=== PATIENT | female | born 1955 | race Caucasian/White ===

== ENCOUNTER 2017-01-20 08:14 | Emergency (ER) | payer BC ==
[2017-01-20 08:22] VITALS: BP 156/92
--- NOTE | 2017-01-20 09:16 | RAD ---
Indication: Pain and limitation of movement. Locking. Comparison: No relevant prior exams available on the [facility] PACS for comparison. Technique: Internal and external rotation AP and scapular Y views RIGHT shoulder Report: Normal acromioclavicular and glenohumeral joint alignment. Mild acromioclavicular and glenohumeral joint osteophytosis. Negative for significant glenohumeral joint space narrowing. Sclerosis and cystic change at the greater tuberosity of the humerus favors presence of chronic rotator cuff pathology. Negative for fracture. Negative for stigmata of calcific tendinopathy. Unremarkable soft tissue contours. IMPRESSION: Mild acromioclavicular and glenohumeral joint osteoarthritis. Stigmata of probable chronic rotator cuff pathology.
--- NOTE | 2017-01-20 09:42 | UC ---
Hector Mg Angela, [facility] MD on 01/20/17 at 0855 . Upper Extremity HPI - HPI Summary HPI Summary: This pt is a 61 y/o right-hand dominant female presenting to [facility] c/o right shoulder pain since yesterday in the morning. Pt reports she woke up with this pain in a locked position where she couldn't move it secondary to pain. She notes that she has pain with movement of her right arm. 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 2 days ago (before the pain started), the pt did the same amount of work as usual. When she went to bed before her pain, she didnt have any symptoms. Her shoulder is still painful today only when she lifts her right arm but her pain is alleviated with rest. She notes numbness in the right arm. Pt denies chest pain, cough, abd pain, other joint pain, fever. She states having diarrhea today and yesterday. Pt notes a lot of stress recently. She states she has an upcoming appointment with her PCP for a physical exam in February. PMHx: diverticulitis. Pt is a former smoker, quit 1 year ago and currently uses eCigarettes. MDs Note: 61 y/o female with right shoulder pain. Vitals signs are stable. Elevated blood pressure of 156/92. Pt has 7/10 pain. Visit history noncontributory to present complaint. This pt is not on any anti-hypertensive medications. Nurses Note: right shoulder locked yesterday am forced it to move and arrives today with increased pain - History of Current Complaint Chief Complaint: UCUpperExtremity Stated Complaint: ARM/SHOULDER INJURY Time Seen by Provider: 01/20/17 08:31 Hx Obtained From: Patient Onset/Duration: Sudden Onset - since yesterday Pain Intensity: 7 Pain Scale Used: 0-10 Numeric Location Of Pain: Is Discrete @ - right shoulder Aggravating Factor(s): Movement Alleviating Factor(s): Rest Associated Signs And Symptoms: Positive: Weakness Related History: Dominant Hand Right - Allergies/Home Medications Allergies/Adverse Reactions: Allergies Allergy/AdvReac Type Severity Reaction Status Date / Time Penicillins Allergy Severe severe Verified 01/20/17 08:23 Erythromycin Allergy Intermediate Rash Verified 01/20/17 08:23 Tetracycline Allergy Intermediate Rash Verified 01/20/17 08:23 PMH/Surg Hx/FS Hx/Imm Hx Other Cardiovascular History: DENIES: HTN GI/ History: Diverticulitis - Surgical History Surgical History: Yes Surgery Procedure, Year, and Place: Hysterectomy. Gall Bladder - Family History Known Family History: Positive: Hypertension, Diabetes - Father and mother, Other - Father had an ME in his 20's. Father: dementia. - Social History Alcohol Use: None Substance Use Type: None Smoking Status (MU): Former Smoker Type: eCigarettes Review of Systems Constitutional: Negative Skin: Negative Eyes: Negative ENT: Negative Respiratory: Negative Cardiovascular: Negative Gastrointestinal: Diarrhea Genitourinary: Negative Motor: Decreased ROM - in right shoulder Musculoskeletal: Decreased ROM - in right shoulder, Other: - right shoulder pain Neurological: Numbness - in right arm Psychological: Negative All Other Systems Reviewed And Are Negative: Yes Physical Exam Triage Information Reviewed: Yes Vital Signs: Initial Vital Signs Temp 97.5 F 01/20/17 08:18 Pulse 79 01/20/17 08:18 Resp 17 01/20/17 08:18 BP 156/92 01/20/17 08:18 Pulse Ox 100 01/20/17 08:18 Vital Signs Reviewed: Yes - Additional Comments The patient is well-nourished in no acute distress and in no acute pain. The skin is warm and dry and skin color reflects adequate perfusion. HEENT: The head is normocephalic and atraumatic. The pupils are equal and reactive. The conjunctivae are clear and without drainage. Nares are patent and without drainage. Mouth reveals moist mucous membranes and the throat is without erythema and exudate. The external ears are intact. The ear canals are patent and without drainage. The tympanic membranes are intact. Neck is supple with full range of motion and non-tender. There are no carotid bruits. There is no neck vein distension. Respiratory: Chest is non-tender. Lungs are clear to auscultation and breath sounds are symmetrical and equal. Cardiovascular: Hear is regular rate and rhythm. There is no murmur or rub auscultated. There is no peripheral edema and pulses are symmetrical and equal. Abdomen: The abdomen is soft and non-tender. There are normal bowel sounds heard in all four quadrants and there is no organomegaly palpated. Musculoskeletal: There is no back pain noted. There is good capillary refill. There is no peripheral edema or calf tenderness elicited. LEFT UPPER EXTREMITY: FULL RANGE OF MOTION. RIGHT SHOULDER EXAM: EXTERNAL EXAM IS NORMAL, THERE IS NO SIGN OF INFECTION. LIMITED RANGE OF MOTION LATERALLY AND ANTERIORLY TO LESS THAN 90 DEGREES BECAUSE OF PAIN. PRIMARY DISCOMFORT IS WHEN THE RIGHT SHOULDER IS ABDUCTED. RIGHT ARM CAN BE TWISTED BEHIND THE BACK WITHOUT PAIN. THERE IS SOME COMPLAINT OF SLIGHT NUMBNESS ON BOTH SIDES OF THE BICEP MUSCLE WITH PALPATION. DISTAL CIRCULATION, MOTOR AND SENSORY ARE FULLY INTACT. Neurological: Patient is alert and oriented to person, place and time. The patient has symmetrical motor strength in all four extremities. Cranial nerves are grossly intact. Deep tendon reflexes are symmetrical and equal in all four extremities. Psychiatric: The patient has an appropriate affect and does not exhibit any anxiety or depression. Diagnostics - Radiology Right Shoulder XR Xray Interpretation: Positive (See Comments) - IMPRESSION: Mild acromioclavicular and glenohumeral joint osteoarthritis. Stigmata of probable chronic rotator cuff pathology. ED physician has reviewed this radiology report and agrees. Radiology Interpretation Completed By: Radiologist Upper Extremity Course/Dx - Course Course Of Treatment: Medications have been included in the original chart and reviewed. Patient is Urgent/Emergent. BP elevated due to current condition w/o HTN in PMH. On exam, LEFT UPPER EXTREMITY: FULL RANGE OF MOTION. RIGHT SHOULDER EXAM: EXTERNAL EXAM IS NORMAL, THERE IS NO SIGN OF INFECTION. LIMITED RANGE OF MOTION LATERALLY AND ANTERIORLY TO LESS THAN 90 DEGREES BECAUSE OF PAIN. PRIMARY DISCOMFORT IS WHEN THE RIGHT SHOULDER IS ABDUCTED. RIGHT ARM CAN BE TWISTED BEHIND THE BACK WITHOUT PAIN. THERE IS SOME COMPLAINT OF SLIGHT NUMBNESS ON BOTH SIDES OF THE BICEP MUSCLE WITH PALPATION. DISTAL CIRCULATION, MOTOR AND SENSORY ARE FULLY INTACT. - Differential Dx/Diagnosis Differential Diagnosis/HQI/PQRI: Arthritis, Fracture (Closed), Other - Tendinitis Provider Diagnoses: Right shoulder: osteoarthritis, rotator cuff injury Discharge - Discharge Plan Condition: Stable Disposition: HOME Patient Education Materials: Rotator Cuff Tendinitis (ED), Osteoarthritis (ED) , Adhesive Capsulitis (ED) Forms: *Work Release Referrals: Baltazar Ortiz MD [Primary Care Provider] - Additional Instructions: Thank you for helping us improve patient care by filling out the [employer] Survey. WE DISCUSSED: There are no broken bones but your x ray shows arthritis and injury to the muscles around your shoulder. Warm shower and heat to area in the morning. See information to perform shoulder exercises including pendulum exercises to keep shoulder loose. After work, use ice to area of pain. See you doctor next month, as planned, and consider physical therapy at that time if condition continues. This will take approximately 10 days to get better. Call us for any increased pain or disability. x ray report for your doctor: Mild acromioclavicular and glenohumeral joint osteoarthritis. Stigmata of probable chronic rotator cuff pathology. Rest arm for next 5 days. Return to work on Wednesday, January 25, 2017. The documentation as recorded by the Hector ford Angela accurately reflects the service I personally performed and the decisions made by me, Michael Kasper MD.
== END 2017-01-20 09:50 | disposition home or self-care (01) ==
LOC: UCEAST 08:14
DX: M19.011 Primary osteoarthritis, right shoulder (principal); S46.001A Unspecified injury of muscle(s) and tendon(s) of the rotator cuff of right shoulder, initial encounter; X58.XXXA Exposure to other specified factors, initial encounter; Z88.1 Allergy status to other antibiotic agents; Z88.0 Allergy status to penicillin; Z87.891 Personal history of nicotine dependence
CPT/HCPCS: 99212; G0463

== ENCOUNTER 2017-09-14 08:00 | Emergency (ER) | payer OTHER ==
[2017-09-14 08:17] VITALS: BP 150/87
--- NOTE | 2017-09-14 09:23 | RAD ---
HISTORY: Left wrist pain COMPARISONS: None VIEWS: 3, Frontal, lateral, and oblique views of the left wrist FINDINGS: BONE DENSITY: Normal. BONES: There is no displaced fracture. JOINTS: There is advanced osteoarthritis of the first CMC joint. ALIGNMENT: There is no dislocation. SOFT TISSUES: Unremarkable. OTHER FINDINGS: None. IMPRESSION: FIRST CMC OSTEOARTHRITIS. NO ACUTE OSSEOUS INJURY. IF SYMPTOMS PERSIST, RECOMMEND REPEAT IMAGING.
--- NOTE | 2017-09-14 09:59 | ED ---
Upper Extremity Pain - HPI Summary HPI Summary: 62 yo WF p/w left wrist and elbow pain for 3 days. 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 sometimes pain radiated from left wrist to elbow and hand but denies finger numbness or tingling.Denies fall or injury and Tylenol is not working - History of Current Complaint Chief Complaint: UCUpperExtremity Stated Complaint: WRIST PAIN Time Seen by Provider: 09/14/17 09:05 Hx Obtained From: Patient Hx From Patient Unobtainable Due To: Other Severity Initially: Moderate Severity Currently: Moderate Pain Location: Elbow, Wrist Character: Dull, Aching Aggravating Factor(s): Movement Alleviating Factor(s): Nothing Related History: Occupational Injury, Dominant Hand Right - Risk Factors Non-Orthopedic Risk Factor: Negative - Allergies/Home Medications Allergies/Adverse Reactions: Allergies Allergy/AdvReac Type Severity Reaction Status Date / Time erythromycin base Allergy Rash Verified 09/14/17 08:18 Penicillins Allergy Unknown Verified 09/14/17 08:18 Reaction Details tetracycline Allergy Rash Verified 09/14/17 08:18 Home Medications: Home Medications L.acidoph,Paracasei, B.lactis [Probiotic] 1 each PO 09/14/17 [History] [place]-3 Fatty Acids/Fish Oil [Fish Oil 1,000 mg Capsule] 1 each PO 09/14/17 [ History] PMH/Surg Hx/FS Hx/Imm Hx Previously Healthy: Yes Endocrine/Hematology History: Denies: Hx Diabetes, Hx Thyroid Disease Cardiovascular History: Denies: Hx Hypertension Respiratory History: Denies: Hx Asthma, Hx Chronic Obstructive Pulmonary Disease (COPD) GI History: Denies: Hx Ulcer - Cancer History Hx Chemotherapy: No Hx Radiation Therapy: No - Surgical History Surgery Procedure, Year, and Place: Hysterectomy. Gall Bladder Infectious Disease History: No Infectious Disease History: Denies: Hx Clostridium Difficile, Hx Hepatitis, Hx Human Immunodeficiency Virus (HIV), Hx of Known/Suspected MRSA, Hx Shingles, Hx Tuberculosis, Hx Known/ Suspected VRE, Hx Known/Suspected VRSA, History Other Infectious Disease, Traveled Outside the [place] in Last 30 Days - Family History Known Family History: Positive: Hypertension, Diabetes - Father and mother, Other - Father had an SD in his 20's. Father: dementia. - Social History Alcohol Use: None Substance Use Type: Reports: None Smoking Status (MU): Former Smoker Type: eCigarejordan Review of Systems Constitutional: Negative Eyes: Negative ENT: Negative Cardiovascular: Negative Respiratory: Negative Gastrointestinal: Negative Musculoskeletal: Other - SEE HPI Skin: Negative Neurological: Negative All Other Systems Reviewed And Are Negative: Yes Physical Exam Triage Information Reviewed: Yes Vital Signs On Initial Exam: Initial Vitals Temp Pulse Resp BP Pulse Ox 35.6 C 74 18 150/87 100 09/14/17 08:11 09/14/17 08:11 09/14/17 08:11 09/14/17 08:11 09/14/17 08:11 Vital Signs Reviewed: Yes Appearance: Positive: Well-Appearing Skin: Positive: Warm Head/Face: Positive: Normal Head/Face Inspection Eyes: Positive: Normal ENT: Positive: Normal ENT inspection Neck: Positive: Supple Respiratory/Lung Sounds: Positive: Clear to Auscultation Cardiovascular: Positive: Normal Musculoskeletal: Positive: Pain @ - left wrist around ulnar styloid process, radiates to pinky, TTP around medial olecranon site of ulnar nerve passage Diagnostics - Vital Signs Vital Signs Temp Pulse Resp BP Pulse Ox 09/14/17 08:11 35.6 C 74 18 150/87 100 - Laboratory Lab Statement: Any lab studies that have been ordered have been reviewed, and results considered in the medical decision making process. Course/Dx - Course Course Of Treatment: XR of left wrist neg for fx, OA at left CMC. RICE, wrist splint, MRI referral if pain continues - Diagnoses Differential Diagnosis/HQI/PQRI: Positive: Strain, Sprain Provider Diagnoses: Left wrist sprain, Ulnar neuropathy at elbow, Ulnar neuropathy at wrist Discharge - Sign-Out/Discharge Documenting (check all that apply): Discharge/Admit/Transfer - Discharge Plan Condition: Stable Disposition: HOME Prescriptions: Naproxen [Naproxen 500 mg tab] 500 mg PO BID 10 Days #20 tablet Patient Education Materials: Tenosynovitis (ED) Referrals: Baltazar Ortiz MD [Primary Care Provider] - Additional Instructions: please follow up with your PCP for MRI referral - Billing Disposition and Condition Condition: STABLE Disposition: HOME
== END 2017-09-14 09:59 | disposition home or self-care (01) ==
LOC: UCEAST 08:00
DX: S63.502A Unspecified sprain of left wrist, initial encounter (principal); X50.3XXA Overexertion from repetitive movements, initial encounter; Y93.89 Activity, other specified; Y92.9 Unspecified place or not applicable; Y99.0 Civilian activity done for income or pay; G56.22 Lesion of ulnar nerve, left upper limb; M19.032 Primary osteoarthritis, left wrist; Z88.1 Allergy status to other antibiotic agents; Z88.0 Allergy status to penicillin; Z87.891 Personal history of nicotine dependence
CPT/HCPCS: 99211; G0463